=== PATIENT | female | born 1955 | race Caucasian/White ===

== ENCOUNTER → 2017-05-08 | Outpatient (CLI) | payer OTHER | LOC: MC.RAD 05-06 08:40 | DX: Z12.31 Encounter for screening mammogram for malignant neoplasm of breast (principal) ==

== ENCOUNTER → 2019-08-05 | Outpatient (CLI) | payer OTHER | LOC: MC.RAD 08:21 | DX: Z12.31 Encounter for screening mammogram for malignant neoplasm of breast (principal) ==

== ENCOUNTER → 2020-02-01 | Outpatient (CLI) | payer OTHER | LOC: ZCOL.LAB 16:41 | DX: Z20.828 Contact with and (suspected) exposure to other viral communicable diseases (principal) ==

== ENCOUNTER → 2021-11-22 | Outpatient (CLI) | payer OTHER | LOC: MC.RAD 09:31 | DX: Z12.31 Encounter for screening mammogram for malignant neoplasm of breast (principal) ==

== ENCOUNTER → 2023-12-31 | Outpatient (CLI) | payer MEDICARE ==
[~2023-12-31] MED LIST: HCTZ 25MG TAB25 MG PO; LIPITOR20 MG PO; NORVASC 5MG5 MG/TAB PO; ZIAC 10/6.25M1 UDTAB PO
== END ==
LOC: MC.RAD 14:30
DX: Z12.31 Encounter for screening mammogram for malignant neoplasm of breast (principal)